=== PATIENT | female | born 2000 | race Caucasian/White ===

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

== ENCOUNTER 2019-03-07 12:08 | Emergency (ER) | payer OTHER ==
[~2019-03-07] VITALS: Ht 160 cm; Wt 43.1 kg
--- OUTSIDE RECORDS SUMMARY | 2019-03-07 12:11 | XMS REPORT | Clinical Summary ---
Author Author [facility] Organization [facility] Address Unknown Phone Unavailable Care Team Providers Care Acoustic Sensor Operator Name Role Phone Faby Hollis MD PCP Allergies No Known Allergies Medications End Date Status Medication Sig Dispensed Refills Start Date 05/29/2018 Discontinued escitalopram (LEXAPRO) 10 Take 10 mg by 0 MG tablet mouth daily. Active Problems Problem Noted Date Endometriosis 05/29/2018 Encounters Care Team Description Date Type Specialty Elda Carter MD 05/29/2018 Anesthesia Obstetrics and Gynecology Event Maryanne Dozier MD OPERATIVE LAPAROSCOPY AND HYSTEROSCOPY, CAUTERIZATION OF ENDO, ASPIRATION OF OVARIAN CYST 05/29/2018 Surgery Obstetrics and Gynecology Maryanne Dozier MD 05/29/2018 Hospital Obstetrics and Gynecology Encounter after 03/06/2018 Social History Date Tobacco Use Types Packs/Day Years Used Never Assessed Sex Assigned at Date Recorded Not on file Industry Job Start Date Occupation Not on file Not on file Not on file Travel End Travel History Travel Start No recent travel history available. Last Filed Vital Signs Time Taken Vital Sign Reading 05/29/2018 3:00 PM CDT Blood Pressure 114/72 05/29/2018 3:00 PM CDT Pulse 67 05/29/2018 4:00 PM CDT Temperature 37 C (98.6 F) 05/29/2018 4:00 PM CDT Respiratory Rate 15 05/29/2018 3:00 PM CDT Oxygen Saturation 100% - Inhaled Oxygen - Concentration 05/29/2018 10:00 AM CDT Weight 54.6 kg (120 lb 4.8 oz) 05/29/2018 10:00 AM CDT Height 160 cm (5' 3") 05/29/2018 10:00 AM CDT Body Mass Index 21.31 Plan of Treatment Not on file Procedures Comments Procedure Name Priority Date/Time Associated Diagnosis OR AN ELECTIVE Routine 05/29/2018 ENDOTRACHEAL AIRWAY 1:05 PM CDT Procedure Note - Alexia Silva, GLAZE SPRAYER - 05/29/2018 1:05 PM CDT Airway Date/Time: 05/29/2018 12:42 PM Performed by: ALEXIA SILVA Authorized by: ELDA CARTER Location: OR Urgency: Elective Difficult Airway: No Performed by: resident/C RNA/AA Preoxygena shira with 100% O2: Yes C-spine Precaution s Maintained Throughout : Yes Mask Ventilatio n: Easy mask Final Airway Type: Endotrache al airway Final Endotrache al Airway: ETT Technique Used: Direct laryngosco py Devices/Me thods Used in Placement: Intubatin g stylet Insertion Site: Oral Blade Type: Powell Laryngosco pe Blade/Vide olaryngosc ope Blade Size: 2 ETT Size (mm): 7.0 Measured from: Lips ETT to Lips (cm): 21 Placement Verified by: CO2 detection, direct visualizat ion and equal breath sounds Laryngosco pic view: Grade I - full view of glottis Rapid Sequence Induction (RSI): No Modified RSI: No Number of Attempts at Approach: 1 LAPAROSCOPY, DIAGNOSTIC 05/29/2018 Pelvic pain in female 12:33 PM CDT Case Notes REQ 1200 START Special Needs REQ 1200 START ESTIMATED GFR STAT 05/29/2018 11:05 AM CDT TYPE AND SCREEN STAT 05/29/2018 11:05 AM CDT BASIC METABOLIC PANEL STAT 05/29/2018 11:05 AM CDT HC COMPLETE BLD COUNT STAT 05/29/2018 W/AUTO DIFF 11:05 AM CDT GFR CALCULATION STAT 05/29/2018 10:48 AM CDT after 03/06/2018 Results * Estimated GFR (05/29/2018 11:05 AM CDT) Estimated GFR >=90 mL/min/1.73 m2 [facility] DEPARTMENT Comment: OF PATHOLOGY CatergoryUnitsInte AND GENOMIC rpretation MEDICINE G1 >=90 Normal or high G2 60-89Mildly decreased [id number] Mildly to moderately decreased [id number] Moderately to severely decreased G4 15-29Severely decreased G5 <15Kidney failure The eGFR was calculated using the Chronic Kidney Disease Epidemiology Collaboration (CKD-EPI) equation. Interpretation is based on recommendations of the National Kidney Foundation-Kidney Disease Outcomes Quality Initiative (NKF-KDOQI) published in 2014. Specimen Plasma specimen Performing Organization Address City/State/Zipcode Phone Number [facility] DEPARTMENT OF [address] [place] [address] PATHOLOGY AND GENOMIC MEDICINE * CBC with platelet and differential (05/29/2018 11:05 AM CDT) WBC 5.05 4.50 - 11.00 k/uL [facility] DEPARTMENT OF PATHOLOGY AND GENOMIC MEDICINE RBC 4.69 4.20 - 5.50 m/uL [facility] DEPARTMENT OF PATHOLOGY AND GENOMIC MEDICINE HGB 13.7 12.0 - 16.0 g/dL [facility] DEPARTMENT OF PATHOLOGY AND GENOMIC MEDICINE HCT 39.9 37.0 - 47.0 % [facility] DEPARTMENT OF PATHOLOGY AND GENOMIC MEDICINE MCV 85.1 82.0 - 100.0 fL [facility] DEPARTMENT OF PATHOLOGY AND GENOMIC MEDICINE MCH 29.2 27.0 - 34.0 pg [facility] DEPARTMENT OF PATHOLOGY AND GENOMIC MEDICINE MCHC 34.3 31.0 - 37.0 g/dL [facility] DEPARTMENT OF PATHOLOGY AND GENOMIC MEDICINE RDW - SD 37.3 37.0 - 55.0 fL [facility] DEPARTMENT OF PATHOLOGY AND GENOMIC MEDICINE MPV 11.4 8.8 - 13.2 fL [facility] DEPARTMENT OF PATHOLOGY AND GENOMIC MEDICINE Platelet count 169 150 - 400 k/uL [facility] DEPARTMENT OF PATHOLOGY AND GENOMIC MEDICINE Nucleated RBC 0.00 /100 WBC [facility] DEPARTMENT OF PATHOLOGY AND GENOMIC MEDICINE Neutrophils 46.0 39.0 - 69.0 % [facility] DEPARTMENT OF PATHOLOGY AND GENOMIC MEDICINE Lymphocytes 46.3 (H) 25.0 - 45.0 % [facility] DEPARTMENT OF PATHOLOGY AND GENOMIC MEDICINE Monocytes 6.1 0.0 - 10.0 % [facility] DEPARTMENT OF PATHOLOGY AND GENOMIC MEDICINE Eosinophils 1.0 0.0 - 5.0 % [facility] DEPARTMENT OF PATHOLOGY AND GENOMIC MEDICINE Basophils 0.4 0.0 - 1.0 % [facility] DEPARTMENT OF PATHOLOGY AND GENOMIC MEDICINE Immature 0.2Comment: "Immature 0.0 - 1.0 % [facility] DEPARTMENT granulocytes granulocytes" (promyelocytes, OF PATHOLOGY myelocytes, metamyelocytes) AND GENOMIC MEDICINE Specimen Blood Performing Organization Address City/[facility]/Zipcode Phone Number [facility] [place] [address] PATHOLOGY AND GENOMIC MEDICINE * Type and screen (05/29/2018 11:05 AM CDT) [facility] ABO grouping A [facility] DEPARTMENT OF PATHOLOGY AND GENOMIC MEDICINE Rh type NEG [facility] DEPARTMENT OF PATHOLOGY AND GENOMIC MEDICINE Antibody screen NEG [facility] DEPARTMENT (gel) OF PATHOLOGY AND GENOMIC MEDICINE Specimen Blood Performing Organization Address City/[facility]/Zipcode Phone Number [facility] [place] [address] PATHOLOGY AND [facility] MEDICINE * Basic metabolic panel (05/29/2018 11:05 AM CDT) [facility] Sodium 139 135 - 148 mEq/L [facility] DEPARTMENT OF PATHOLOGY AND GENOMIC MEDICINE Potassium 4.2 3.5 - 5.0 mEq/L [facility] DEPARTMENT OF PATHOLOGY AND GENOMIC MEDICINE Chloride 107 98 - 112 mEq/L [facility] DEPARTMENT OF PATHOLOGY AND GENOMIC MEDICINE CO2 22 (L) 24 - 31 mEq/L [facility] DEPARTMENT OF PATHOLOGY AND GENOMIC MEDICINE Anion gap 10@ANIO 7 - 15 mEq/L [facility] DEPARTMENT OF PATHOLOGY AND GENOMIC MEDICINE BUN 7 6 - 20 mg/dL [facility] DEPARTMENT OF PATHOLOGY AND GENOMIC MEDICINE Creatinine 0.69 0.50 - 0.90 mg/dL [facility] DEPARTMENT OF PATHOLOGY AND GENOMIC MEDICINE Glucose 94 65 - 99 mg/dL [facility] DEPARTMENT OF PATHOLOGY AND GENOMIC MEDICINE Calcium 9.7 8.3 - 10.2 mg/dL [facility] DEPARTMENT OF PATHOLOGY AND GENOMIC MEDICINE Specimen Plasma specimen Performing Organization Address City/[facility] Phone Number [facility] [place] [address] PATHOLOGY AND GENOMIC MEDICINE * GFR calculation (05/29/2018 10:48 AM CDT) [facility] GFR calculation See BelowComment: GFR not [facility] DEPARTMENT valid on patients less than 18 OF PATHOLOGY years of age. AND GENOMIC MEDICINE Specimen Plasma specimen Performing Organization Address City/[facility]/Zipcode Phone Number [facility] [place] [address] PATHOLOGY AND GENOMIC MEDICINE after 03/06/2018 Insurance Type Payer Benefit Subscriber ID Effective Phone Address Plan / Dates Group [facility] CARLOS A STRAUSS OPEN xxxxxxxxxxx [id number] ACCESS/NET resent WORK Advance Directives Patient has advance care planning documents on file. For more information, primo sotelo contact: Emil Hawkins [address] [place] [address]
--- OUTSIDE RECORDS SUMMARY | 2019-03-07 12:11 | XMS REPORT | Clinical Summary ---
Author Author [facility] CenterAc[facility] InteractiveNorthwest [facility] CenterCICCWORLDWill[facility] Address Unknown Phone Unavailable Care Team Providers Care Weight Trainer Name Role Phone Fbay Hollis MD PCP Allergies No Known Allergies Medications End Date Status Medication Sig Dispensed Refills Start Date Active metFORMIN (GLUCOPHAGE) TK 1 T PO D 1 500 MG tablet 8 Active spironolactone 2 (ALDACTONE) 100 MG tablet 8 Active mirtazapine (REMERON) 15 Take 15 mg by 0 MG tablet mouth nightly. 11/15/2018 Discontinued norethindrone (AYGESTIN) TK 2 TS PO QD 4 5 mg tablet HS 8 11/15/2018 Discontinued escitalopram oxalate Take 10 mg by 0 (LEXAPRO) 10 MG tablet mouth as needed. 11/15/2018 Discontinued etonogestrel (NEXPLANON) implanted. 1 each 0 68 mg Impl 8 Active Problems No known active problems Encounters Care Team Description Date Type Specialty Faby Hollis MD Suicidal behavior with attempted self-injury (HCC) (Primary Dx) 11/15/2018 Office Visit Internal Medicine Faby Hollis MD Results 06/27/2018 Telephone Internal Medicine Faby Hollis MD Anxiety and depression (Primary Dx) 06/26/2018 Office Visit Internal Medicine after 03/06/2018 Family History Medical History Relation Name Comments Hypertension Mother Heart disease Sister Heart disease Sister Relation Name Status Comments Father Mother Alive Sister Alive Sister Social History Date Tobacco Use Types Packs/Day Years Used Never Smoker Smokeless Tobacco: Never Used Alcohol Use Drinks/Week oz/Week Comments Yes Alcohol Habits Answer Date Recorded How often do you have a drink containing alcohol? Monthly or less 06/26/2018 How many drinks containing alcohol do you have on 1 or 2 06/26/2018 a typical day when you are drinking? How often do you have six or more drinks on one Less than monthly 06/26/2018 occasion? Sex Assigned at Date Recorded Not on file Industry Job Start Date Occupation Not on file Not on file Not on file Travel End Travel History Travel Start No recent travel history available. Last Filed Vital Signs Time Taken Vital Sign Reading 06/26/2018 8:58 AM FUR LINER Blood Pressure 102/60 06/26/2018 8:58 AM FUR LINER Pulse 60 06/26/2018 8:58 AM FUR LINER Temperature 36.9 C (98.4 F) 11/15/2018 9:11 AM CDT Respiratory Rate 16 06/26/2018 8:58 AM FUR LINER Oxygen Saturation 91% - Inhaled Oxygen - Concentration 11/15/2018 9:11 AM CDT Weight 49.3 kg (108 lb 11.2 oz) 11/15/2018 9:11 AM CDT Height 160 cm (5' 3") 11/15/2018 9:11 AM CDT Body Mass Index 19.26 Plan of Treatment Not on file Procedures Comments Procedure Name Priority Date/Time Associated Diagnosis TSH Routine 06/26/2018 Anxiety and depression 9:33 AM FUR LINER after 03/06/2018 Results * TSH (06/26/2018 9:33 AM FUR LINER) TSH 3.390 0.450 - 4.50 uIU/mL [facility] 1 Specimen Blood Narrative Performed At Performed at:01 - [facility] [address] [place], [id number] Pick Up Man: Klever Fatima MD, Phone:[phone] Performing Organization Address City/State/Zipcode Phone Number [facility] after 03/06/2018 Insurance Payer Benefit Subscriber ID Type Phone Address Plan / Group [employer] - [employer] PPO xxxxxxxxxxx PPO
--- NOTE | 2019-03-07 14:28 | Diagnostic Imaging Report ---
Chest, 1 view, 03/07/2019. History: Chest pain. Comparison: None available. Findings: The cardiomediastinal silhouette and pulmonary vasculature are within normal limits for a portable exam. There is no focal consolidation or pleural effusion. Bilateral nipple piercings are present. There are no acute osseous or soft tissue abnormalities. Impression: No acute cardiopulmonary abnormality. Signed by: Donal Boston on 03/07/2019 2:25 PM
--- NOTE | 2019-03-07 15:15 | NUR ---
PT MOTHER REQUESTING TO SPEAK WITH PATIENT RELATIONS FOR CONCERNS THAT PT WAS NOT SEEN BY A PHYSICIAN DURING THE VISIT AND NOT GIVEN A ROOM; STATES "I SEE Y'ALL HAVE OPEN ROOMS IN THE BACK, AND A DOCTOR DID NOT SEE HER", MOTHER REASSURED THAT MAURISIO KERN SAW PT DURING TRIAGE WHILE EKG WAS PERFORMED, INFORMED THAT PT HAS BEEN SEEN BASED ON ACUITY AND INTERVENTIONS RECOMMENED BY ENP HAVE BEEN IN PLACE, FURTHER INFORMED THAT PT IS READY FOR D/C HER CONDITION IS STABLE BASED ON DIAGNOSTICS ORDERED, MOTHER STATES "YOU CAN'T DISCHARGE HER WITHOUT A DOCTOR HAVING SEEN HER, ONLY NURSES SAW HER", ATTEMPTED TO REASSURE MOTHER AND DAUGHTER MULTIPLE TIMES, BUT UNABLE TO RESOLVE CONCERNS AT THIS TIME, INFORMED THAT RELOCATION ASSOCIATE WOULD BE CALLED TO FURTHER EVALUATE THE CONCERNS, VERBALIZED UNDERSTANDING.
--- NOTE | 2019-03-07 15:22 | NUR ---
PATIENT ELOPED FROM LOBBY. OTHER PATIENT IN LOBBY STATED THAT THIS PATIENT HAD LEFT JUST PRIOR TO CALLING FOR PATIENT TO COME INTO TRIAGE.
== END 2019-03-07 15:19 | disposition left against medical advice (07) ==
LOC: ER 12:08
DX: R07.89 Other chest pain (principal); R00.2 Palpitations; N80.9 Endometriosis, unspecified; F41.9 Anxiety disorder, unspecified; F90.9 Attention-deficit hyperactivity disorder, unspecified type
CPT/HCPCS: 71045; 93005

== ENCOUNTER 2022-02-03 18:29 | Emergency (ER) | payer OTHER ==
[~2022-02-03] VITALS: Ht 160 cm; Wt 43.1 kg
[2022-02-03 19:20] LABS: BASOPHILS % 0.3 % (0.0-1.0); EOSINOPHILS % 0.4 % (0.0-6.0); HEMATOCRIT 36.7 % (34.2-44.1); HEMOGLOBIN 11.8 g/dL (12.0-16.0); LYMPHOCYTES # (AUTO) 1.5 (1.0-3.2); LYMPHOCYTES % 19.3 % (18.0-39.1); MEAN CORPUSCULAR HGB CONC 32.2 g/dL (31-35); MONOCYTES # (AUTO) 0.6 (0.2-0.8); MONOCYTES % 8.3 % (4.4-11.3); NEUTROPHILS # (AUTO) 5.4 (2.1-6.9); NEUTROPHILS % 71.4 % (38.7-80.0); PLATELET COUNT 189 x10e3/uL (140-360); RED BLOOD COUNT 4.37 x10e6/uL (3.6-5.1); RED CELL DISTRIBUTION WIDTH 15.2 % (11.7-14.4)
[2022-02-03 19:32] LABS: ALBUMIN 3.9 g/dL (3.5-5.0); ALBUMIN/GLOBULIN RATIO 1.2 (0.8-2.0); ANION GAP 14.9 mmol/L (8-16); CREATININE, SERUM 0.89 mg/dL (0.57-1.11); POTASSIUM 3.9 mmol/L (3.5-5.1)
[2022-02-03 20:25] LABS: CLARITY,URINE SL CLOUDY (CLEAR); COLOR,URINE YELLOW (YELLOW); KETONES,URINE NEGATIVE (NEGATIVE); LEUKOCYTE ESTERASE ,URINE NEGATIVE (NEGATIVE); NITRITE,URINE NEGATIVE (NEGATIVE); PROTEIN,URINE DIPSTICK NEGATIVE (NEGATIVE); URINE UROBILINOGEN 0.2 mg/dL (0.2 - 1)
[2022-02-03] MEDS ORDERED: SODIUM CHLORIDE 0.9% 1000ML 1,000 ML IV ONE (20:30)
[2022-02-03 20:36] LABS: BACTERIA,URINE RARE /HPF; EPITHELIAL CELLS,URINE FEW /LPF; MUCUS,URINE FEW (RARE)
[2022-02-03 22:14] VITALS: BP 100/56
== END 2022-02-03 22:10 | disposition home or self-care (01) ==
LOC: ER 18:38
DX: G51.0 Bell's palsy (principal); G83.84 Todd's paralysis (postepileptic); R50.9 Fever, unspecified; G40.909 Epilepsy, unspecified, not intractable, without status epilepticus; F41.9 Anxiety disorder, unspecified; F90.9 Attention-deficit hyperactivity disorder, unspecified type
CPT/HCPCS: 36415; 70450; 80053; 81001; 81025; 83518; 85025; 87070; 93005; 99284; J7030